=== PATIENT | male | born 1995 | race Caucasian/White ===

== ENCOUNTER → 2023-12-17 15:06 | Outpatient (BNVA) | payer SELFPAY | PROVIDERS: Visit Provider Psychiatry & Neurology Psychiatry | DX: F31.9 Bipolar disorder, unspecified (principal); F31.12 Bipolar disorder, current episode manic without psychotic features, moderate; Z79.899 Other long term (current) drug therapy | CPT/HCPCS: 80053; 80061; 80178; 83036; 84443; 85025 ==

== ENCOUNTER → 2024-10-28 10:26 | Outpatient (BNVA) | payer OTHER, SELFPAY | PROVIDERS: Visit Provider Psychiatry & Neurology Psychiatry | DX: F31.9 Bipolar disorder, unspecified (principal) | CPT/HCPCS: 80053; 80061; 80178; 83036; 84443; 85025 ==

== ENCOUNTER 2025-02-10 15:47 | Outpatient (CLI) | payer MEDICAID, SELFPAY ==
[2024-12-09 09:25] VITALS: BP 116/79; BMI 38.5
--- NOTE | 2025-02-10 15:52 | US_ITS ---
WS: [id number] ULTRASOUND SOFT TISSUES RIGHT inner thigh. HISTORY: RT INNER THIGH MASS COMPARISON: None available. TECHNIQUE: 2-D and color Doppler imaging is submitted. Ultrasound is directed by the patient along the RIGHT inner groin. There is edema in the subcutaneous soft tissues infiltrating over several centimeters. There is also overlying thickening of the skin and a few small tracks extending into the skin. The entire inflammatory collection measures 2.8 x 1.7 x 1.0 cm. There is no adenopathy identified. No increased vascularity. US/US soft tissue/extremity [id number] IMPRESSION: Infiltrating fluid with adjacent overlying soft tissue thickening along the inn er RIGHT groin corresponds to the palpable abnormality. This is an inflammatory reaction. This may be related to an infected hair follicle, trauma or insect b ite. There is no separate mass or increased vascularity. No abscess at this dany e.
== END 2025-02-10 15:48 | disposition home or self-care (01) ==
LOC: RAD 15:49
PROVIDERS: PCP Family Medicine; Visit Provider Dermatology
DX: R22.41 Localized swelling, mass and lump, right lower limb (principal)
CPT/HCPCS: 76882